=== PATIENT | female | born 1980 | race Caucasian/White ===

== ENCOUNTER 2020-12-29 05:33 | Inpatient (IN) | payer MEDICAID ==
[2020-12-29] MEDS ORDERED: Lactated Ringers 1,000 ML IV SCH (06:00)
[2020-12-29] MEDS ORDERED: Oxytocin 10 Units/1 ML SDV ONE ×2 (06:49→07:05)
[2020-12-29] MEDS ORDERED: cefOXitin 1 GM Vial ONE (06:49)
[2020-12-29] MEDS ORDERED: Ondansetron 4 MG/2 ML SDV ONE (07:05)
[2020-12-29] MEDS ORDERED: Lactated Ringers 1,000 ML ONE (07:05)
[2020-12-29] MEDS ORDERED: Sodium Chloride 0.9% 30 ML ONE (07:08)
[2020-12-29] MEDS ORDERED: cefOXitin 2 GM Vial ONE (07:08)
[2020-12-29] MEDS ORDERED: ePHEDrine 50 MG/ML SDV ONE (07:08)
[2020-12-29] MEDS ORDERED: Phenylephrine 1% 10 MG/ML SDV ONE (07:09)
[2020-12-29] MEDS ORDERED: Naloxone 0.4 MG/ML SDV IVPUSH PRN (07:31)
[2020-12-29] MEDS ORDERED: HYDROmorphone/Normal Saline 15 MG/30 ML PCA IV PRN (07:31)
[2020-12-29] MEDS ORDERED: Naloxone 0.4 MG/ML SDV IV PRN (08:00)
[2020-12-29] MEDS ORDERED: Hypromellose 0.3% Ophth Soln 15 ML Bottle EYEBOTH SCH (09:00)
[2020-12-29] MEDS ORDERED: Loratadine 10 MG Tab PO SCH (09:00)
[2020-12-29] MEDS ORDERED: Fluticasone Propionate Nasal Spray 16 GM Bottle NASBOTH SCH (09:00)
[2020-12-29] MEDS ORDERED: Aspirin 81 MG Tab.EC PO SCH (09:00)
[2020-12-29] MEDS ORDERED: hydrOXYzine HCL 100 MG/2 ML SDV IM PRN (10:00)
[2020-12-29] MEDS ORDERED: Ondansetron 4 MG/2 ML SDV IVPUSH PRN (10:00)
[2020-12-29] MEDS: Acetaminophen 500 MG Tab PO SCH ×3 (12:07→21:58)
[2020-12-29] MEDS: Ibuprofen 600 MG Tab PO SCH ×3 (12:07→21:57)
[2020-12-29] MEDS: cefOXitin 2 GM in Sodium Chloride 0.9% 50 ML IV SCH ×2 (14:11→20:46)
[2020-12-29] MEDS: Lactated Ringers 1,000 ML IV SCH (18:12)
[2020-12-29] MEDS: Loratadine 10 MG Tab PO SCH (20:43)
[2020-12-29] MEDS: Aspirin 81 MG Tab.EC PO SCH (20:43)
[2020-12-29] MEDS: Hypromellose 0.3% Ophth Soln 15 ML Bottle EYEBOTH SCH (20:44)
[2020-12-29] MEDS: Fluticasone Propionate Nasal Spray 16 GM Bottle NASBOTH SCH (20:44)
[2020-12-30] MEDS: cefOXitin 2 GM in Sodium Chloride 0.9% 50 ML IV SCH ×4 (01:24→20:01)
[2020-12-30] MEDS: Lactated Ringers 1,000 ML IV SCH (04:13)
[2020-12-30] MEDS: Acetaminophen 500 MG Tab PO SCH ×4 (05:18→22:00)
[2020-12-30] MEDS: Ibuprofen 600 MG Tab PO SCH ×4 (05:18→22:00)
[2020-12-30] MEDS: HYDROmorphone 2 MG Tab PO PRN ×4 (08:09→22:04)
[2020-12-30] MEDS: Bisacodyl 5 MG Tab PO SCH ×2 (09:37→20:45)
[2020-12-30] MEDS: Docusate Sodium 100 MG Cap PO SCH ×2 (09:37→20:45)
[2020-12-30] MEDS: Loratadine 10 MG Tab PO SCH (20:45)
[2020-12-30] MEDS: Fluticasone Propionate Nasal Spray 16 GM Bottle NASBOTH SCH (20:46)
[2020-12-30] MEDS: Hypromellose 0.3% Ophth Soln 15 ML Bottle EYEBOTH SCH (20:46)
[2020-12-30] MEDS: Aspirin 81 MG Tab.EC PO SCH (22:00)
[2020-12-31] MEDS: cefOXitin 2 GM in Sodium Chloride 0.9% 50 ML IV SCH (02:00)
[2020-12-31] MEDS: HYDROmorphone 2 MG Tab PO PRN ×4 (04:18→23:50)
[2020-12-31] MEDS: Acetaminophen 500 MG Tab PO SCH ×4 (06:02→22:00)
[2020-12-31] MEDS: Ibuprofen 600 MG Tab PO SCH ×4 (06:02→22:00)
--- NOTE | 2020-12-31 07:14 | PN ---
DATE OF SERVICE: 12/30/2020 SUBJECTIVE: Candice is postop day 1 following a section with delivery of a viable baby boy. Blood sugar last checked was 88. She did not have any Lantus last evening. Oral intake 2250. Urine output 4950 via Powers catheter. REVIEW OF SYSTEMS: Remainder of review of systems negative for any pertinent positives and negatives. OBJECTIVE: GENERAL: Candice is a pleasant 40-year-old female. She is alert and orientated. VITAL SIGNS: TPR; 97, 72, 16, and blood pressure 112/73. HEENT: Negative. NECK: Supple. HEART: Regular rate and rhythm. LUNGS: Clear. ABDOMEN: Soft and nontender. EXTREMITIES: Without peripheral edema. ASSESSMENT: section with bilateral tubal ligation. Date: 12/29/2020. Surgeon: Cornelius Eden MD. PLAN: 1. Saline lock IV. 2. Discontinue BRANCH OFFICE ADMINISTRATOR. 3. Dilaudid 2 mg 1 to 2 every 4 hours p.r.n. pain. 4. Powers out. 5. Colace 100 mg p.o. b.i.d. 6. Dulcolax tabs 10 mg b.i.d. p.o. 7. May shower. 8. Blood sugars ordered per Dr. Cornelius Eden for q.a.m. at 0800. 9. We will evaluate p.r.n. or in the a.m. Kristine Vang PA-C /[id number]
[2020-12-31] MEDS: Bisacodyl 5 MG Tab PO SCH ×2 (09:08→21:10)
[2020-12-31] MEDS: Prenatal Multivitamin with Calcium/Folic Acid/Iron Tab PO SCH (09:09)
[2020-12-31] MEDS: Docusate Sodium 100 MG Cap PO SCH ×2 (09:09→21:10)
[2020-12-31] MEDS ORDERED: Lanolin 100% Cream 40 GM Tube TOP PRN (09:15)
[2020-12-31] MEDS: Loratadine 10 MG Tab PO SCH (21:09)
[2020-12-31] MEDS: Aspirin 81 MG Tab.EC PO SCH (21:09)
[2020-12-31] MEDS: Fluticasone Propionate Nasal Spray 16 GM Bottle NASBOTH SCH (21:10)
[2020-12-31] MEDS: Hypromellose 0.3% Ophth Soln 15 ML Bottle EYEBOTH SCH (21:10)
[2021-01-01] MEDS: HYDROmorphone 2 MG Tab PO PRN ×2 (03:56→08:07)
[2021-01-01] MEDS: Acetaminophen 500 MG Tab PO SCH ×2 (06:03→09:41)
[2021-01-01] MEDS: Ibuprofen 600 MG Tab PO SCH ×2 (06:03→09:41)
--- NOTE | 2021-01-01 08:57 | DISCH ---
ADMITTING DIAGNOSES: 1. Term . 2. Gestational diabetes. 3. Desire to have permanent sterilization. DISCHARGE DIAGNOSES: 1. section with bilateral tubal ligation. Date: 12/29/2020. Surgeon: Cornelius Eden MD. 2. Gestational diabetes. HISTORY: Candice Horton is a pleasant 40-year-old female, who had a repeat and desires bilateral tubal ligation. After preoperative evaluation and discussion of possible risks and possible complications, she wished to proceed with surgical procedure. HOSPITAL COURSE: Candice had her surgery on 12/29/2020. She had no operative complications. On postoperative day #1, her IV was saline locked. Her PLATFORM INSPECTOR was discontinued. Powers out. She was started on bowel stimulation and oral pain medication. On postoperative day #2, she did have a bowel movement. Oral intake adequate. Blood sugars were 127 but nonfasting on 12/30, and 12/31 was 87. She checked her own this morning and it was 99 fasting. Pain was controlled. Activity was good. Vital signs were stable. She was able to be discharged to home on 01/01/2021. PHYSICAL EXAMINATION: GENERAL: Candice Horton is a pleasant 40-year-old female. VITAL SIGNS: Height is 5 feet 6 inches, weight is 170 pounds. TPR 96.8, 80, 18, blood pressure 120/71. HEENT: Negative. NECK: Supple. HEART: Regular rate and rhythm. LUNGS: Clear. ABDOMEN: Incision looks good. Abdominal binder is off. EXTREMITIES: Without peripheral edema. DISPOSITION: Discharged to home. CONDITION: Stable and improving. HOME MEDICATIONS: 1. Dilaudid 2 mg q.4 hours p.r.n. pain #28. 2. Ibuprofen 600 mg p.o. q.i.d. p.r.n. pain #40. 3. Tylenol Extra Strength 1000 mg p.o. q.i.d. #100. 4. Colace 100 mg p.o. b.i.d. #60. 5. She is to resume vitamin 1 daily. 6. Loratadine 10 mg p.o. daily. 7. Fish oil 1200 mg p.o. daily. 8. Nasacort 1 to 2 pumps inhalation daily. 9. Propylene glycol 1 drop in each eye daily. 10.Folic acid 4 mg daily. 11.Cinnamon bark 1200 mg p.o. b.i.d. 12.Calcium carbonate, magnesium oxide, zinc 1 tablet daily. 13.Aspirin 81 mg p.o. daily. 14.Lanolin cream p.r.n. FOLLOWUP: Appointment to followup is with Kristine Vang PA-C, on 01/10/2021 at 10 a.m. DIET: Usual diet as tolerated. Drink 8 to 10 glasses of water a day. ACTIVITY: No lifting greater than 10 pounds and baby and car seat for 6 weeks. DISCHARGE INSTRUCTIONS: Driving: Do not drive for 1 week. Shower/bathing: May shower. No tub bathing or swimming for 6 to 8 weeks. Wound incision care: Keep operative site clean and dry. Wear abdominal binder as tolerated until incision is completely healed. Notify provider if any fever, increased pain, swelling, redness, drainage, nausea, or vomiting. SPECIAL INSTRUCTIONS: Check blood sugar every morning fasting and record results, bring to clinic appointments. Use incentive spirometer 10 times every hour while awake for 1 week. /[id number]
[2021-01-01] MEDS: Docusate Sodium 100 MG Cap PO SCH (09:42)
[2021-01-01] MEDS: Bisacodyl 5 MG Tab PO SCH (11:15)
[2021-01-01] MEDS: Prenatal Multivitamin with Calcium/Folic Acid/Iron Tab PO SCH (12:40)
--- NOTE | 2021-01-02 07:19 | PN ---
DATE OF SERVICE: 12/31/2020 SUBJECTIVE: Candice is postop day 2 following a section. She reports her pain is getting better under control. Vital signs are is stable. She is voiding without difficulty. Has not had a bowel movement yet and is taking bowel stimulation. REVIEW OF SYSTEMS: Remainder of review of systems negative for any pertinent positives or negatives. OBJECTIVE: GENERAL: Candice is a pleasant 40-year-old female. She is alert and oriented, sitting in the chair. VITAL SIGNS: TPR; 97, 76, 18, and blood pressure 124/74. HEENT: Negative. NECK: Supple. HEART: Regular rate and rhythm. LUNGS: Clear. ABDOMEN: Incision looks good. EXTREMITIES: Without peripheral edema. ASSESSMENT: section with bilateral tubal ligation. Date: 12/29/2020. Surgeon: Cornelius Eden MD. PLAN: 1. Discontinue IV and discontinue IV Mefoxin. 2. We will evaluate p.r.n. or in the a.m. Kristine Vang PA-C /[id number]
--- NOTE | 2021-01-15 12:03 | OR ---
DATE OF PROCEDURE: 12/29/2020 SURGEON: Cornelius Eden MD PREOPERATIVE DIAGNOSIS: 1. Term with history of previous section. 2. Multiparity. POSTOPERATIVE DIAGNOSES: 1. Term with history of previous section. 2. Multiparity. 3. Incisional hernia. OPERATIVE PROCEDURES: 1. Repeat section (48385). 2. Repair of incisional hernia (64425). 3. Bilateral tubal ligation (19603). ANESTHESIA: Spinal. LABORATORY CHIEF: Rosie Guzman CNM INDICATIONS FOR PROCEDURE: The patient presents for a repeat with a history of previous section. She also meets the ethics committee criteria for tubal ligation and wishes to proceed in that direction. Potential risks including bleeding, infection, injury to the mother and/or baby, and possible failure of the tubal ligation over time were all reviewed, and the patient wishes to proceed. DETAILS OF PROCEDURE: The patient was taken to the operating room, and after spinal anesthetic was placed, she was positioned in the supine position with a roll underneath the right hip. A Powers catheter was inserted and the abdomen prepped and draped. The previous Pfannenstiel incision was then reused and carried down through the skin and subcutaneous tissue through the external oblique aponeurosis. Subaponeurotic flaps were then raised superiorly and inferiorly. The patient was noted to have an incisional hernia with collapse of preperitoneal fat and perivesical fat in a plane anterior to the level of the rectus muscle. A portion of this was excised and sent for histological evaluation. Following this, peritoneum was divided in the midline and the peritoneal reflection of the bladder on the uterus was divided and reflected downward. A transverse uterine segment incision was made, and a viable male was delivered through vertex presentation without difficulty. Cords were clamped and cut, and routine care given off the field per Rosie Guzman CNM. The scores on the new baby were 8 and 9 at one and five minutes respectively. The patient was given intrauterine oxytocin and IV cefoxitin. Good uterine contractions were noted as the placenta and membranes were delivered without difficulty. The uterus was then closed with 2 layers of 2-0 Vicryl stitch as was the peritoneal reflection of the bladder on the uterus. At this point, the tubes on each side were identified by tracing them down to the fimbria on each side. A roughly 1 cm segment of tube was excised between clamps and the remaining ends were essentially cauterized and suture ligated with 3-0 Prolene stitch. The uterus was then placed back into the peritoneal cavity. The midline peritoneum was approximated. This included repair of the incisional hernia in the lower half of the midline, this being with #2 Vicryl stitch. #2 Vicryl stitch was then also used to close the anterior fascia. The subcutaneous tissue was reapproximated with a 3-0 Vicryl stitch and the skin with 4-0 Vicryl subcuticular stitch and surgical glue placed. The patient was taken to the recovery room in satisfactory condition. The nurse kennel keeper, Rosie Guzman, played an essential role in assisting in this case, and her presence as an recovery assistant is mandated per the ACOG guidelines. Cornelius Eden MD /[id number]
== END 2021-01-01 14:05 | disposition home or self-care (01) | DRG 785 ==
LOC: JP.SDS 05:33 → JP.MS 07:48
PROVIDERS: ADMIT Surgery; ATTEND Surgery
PROC: 0WQF0ZZ Repair Abdominal Wall, Open Approach (ICD-10-PCS; principal; 2020-12-29)
PROC: 10D00Z1 Extraction of Products of Conception, Low, Open Approach (ICD-10-PCS; principal; 2020-12-29)
PROC: 0UB70ZZ Excision of Bilateral Fallopian Tubes, Open Approach (ICD-10-PCS; principal; 2020-12-29)
DX: O24.424 Gestational diabetes mellitus in childbirth, insulin controlled (principal); Z3A.37 37 weeks gestation of pregnancy; Z37.0 Single live birth; O34.211 Maternal care for low transverse scar from previous cesarean delivery; K43.2 Incisional hernia without obstruction or gangrene
CPT/HCPCS: 36415; 80305-QW; 82947; 85025; 86850; 86900; 86901; 88302; 88307; 94762; A9270-GY; J0694; J1170; J2370; J2405; J2590; J7120

== ENCOUNTER 2024-05-04 07:18 | Day surgery (SDC) | payer MEDICAID ==
[2024-05-04] MEDS ORDERED: Midazolam 1 MG/ML 2 ML SDV ONE (07:29)
[2024-05-04] MEDS ORDERED: fentaNYL 50 MCG/ML SDV ONE (07:29)
[2024-05-04] MEDS ORDERED: Propofol 200 MG/20 ML SDV ONE (07:29)
[2024-05-04] MEDS: Lactated Ringers 1,000 ML IV SCH (08:18)
== END 2024-05-04 11:00 | disposition home or self-care (01) ==
LOC: JP.SDS 07:18
PROVIDERS: ATTEND Family Medicine
DX: Z12.11 Encounter for screening for malignant neoplasm of colon (principal); Z88.1 Allergy status to other antibiotic agents; Z88.5 Allergy status to narcotic agent
CPT/HCPCS: 45378; J2250; J2704; J3010; J7120